=== PATIENT | male | born 1980 | race African-American/Black ===

== ENCOUNTER 2017-03-16 20:11 | Emergency (ER) | payer MEDICAID, OTHER ==
[~2017-03-16] VITALS: Ht 183.5 cm; Wt 83.0 kg
[2017-03-16 20:50] VITALS: BP 134/90
[2017-03-16] MEDS ORDERED: IBUPROFEN600 MG ORAL (20:57)
[2017-03-16] MEDS ORDERED: ACETAMINOPHEN-1 EAC1 ORAL (20:57)
[2017-03-16] MEDS ORDERED: ROBAXIN-750750 MG PO (20:57)
[2017-03-16] MEDS ORDERED: Ketorolac 60mg Inj IM ONE (21:00)
[2017-03-16] MEDS ORDERED: Tylenol #3 tab (300mg/30mg) ORAL ONE (21:00)
[2017-03-16 21:15] VITALS: BP 134/90
--- NOTE | 2017-03-18 10:37 | Emergency Room Report ---
History of Present Illness General Chief Complaint: Lower Back Pain or Injury Source: Patient Present Illness HPI Patient presents with complaints of low back pain Her reports chronic history of back problems Report an MRI from 2013 showing multiple pathology including bulging disc and arthritic changes Patient reports that he has also been weaning himself off marijuana He felt the pain increased in the lower back, and presents for evaluation Patient reports that after taking marijuana his pain appeared to have resolved, however after several hours began having discomfort. Patient has a long history of decompensation including progressively worsening paralysis and muscle strength in the lower extremities Patient ambulate with a cane He reports that he has moved from different [place] And has not been able to have a primary followup Denies any loss of control of bowel urination Denies any recent change in saddle paresthesia, Allergies: Coded Allergies: No Known Allergies (Unverified , 03/16/17) Patient History Past Medical History: see triage record Pertinent Family History: none Reviewed Nursing Documentation: PMH: Agreed, PSxH: Agreed Nursing Documentation-PMH Past Medical History: No History, Except For Review of Systems All Other Systems: negative except mentioned in HPI Physical Exam Vital Signs Date Time Temp Pulse Resp B/P (MAP) Pulse Ox O2 Delivery O2 Flow Rate FiO2 03/16/17 20:42 83 16 134/90 97 Room Air Sp02 EP Interpretation: reviewed, normal General Appearance: no apparent distress Head: normocephalic, atraumatic Eyes: bilateral eye PERRL, bilateral eye EOMI ENT: hearing grossly normal Neck: full range of motion, supple Respiratory: lungs clear, normal breath sounds Cardiovascular #1: normal peripheral pulses, regular rate, rhythm Gastrointestinal: normal bowel sounds, non tender Musculoskeletal: other - Patient has a significantly abnormal gait patient ambulates with a cane, has increased pain in the paraspinal area in the lower L- spine, no obvious step-offs, sensory is intact, Neurologic: alert, oriented x3, ip paralegal III-XII nml as tested Skin: no rash Lymphatic: no adenopathy Medical Decision Making Diagnostic Impression: Primary Impression: Low back pain ER Course There are multiple differentials and consideration Worsening neurological/neurosurgical pathology with the patient's L. spine Infectious pathology There is a significant chronicity to the patient's presentation Patient has MRI from 4 years ago showing significant abnormalities I feel that there is some acute exacerbation of a chronic pathology However do not see any end organ injury or findings on the emergency evaluation requiring repeat acute MRI Patient does require urgent followup as an outpatient And he is agreeable to pain management improvement followed by close followup Last Vital Signs Date Time Temp Pulse Resp B/P (MAP) Pulse Ox O2 Delivery O2 Flow Rate FiO2 03/16/17 21:15 83 16 134/90 97 Room Air Status: improved Disposition: HOME, SELF-CARE Condition: Improved Scripts Acetaminophen With Codeine (T#3) (TYLENOL #3 TAB*) Y Tab 1 TAB ORAL Q8H Y for For Pain, #12 TAB Prov: MAGDY BRAGA D.O. 03/16/17 Methocarbamol* (ROBAXIN-750*) 750 Mg Tablet 750 MG PO TID, #21 TAB 0 Refills Prov: MAGDY BRAGA D.O. 03/16/17 Ibuprofen* (MOTRIN*) 600 Mg Tablet 600 MG ORAL Q8H Y for For Pain, #20 TAB 0 Refills Prov: MAGDY BRAGA D.O. 03/16/17 Referrals: [facility],REFERR[facility] (PCP) Patient Instructions: Back Pain, Adult Additional Instructions: Given your personal account of the MRI he had in 2012, given her progressively worsening symptoms you require close follow with specialty such as neurosurgery/ orthopedic specialty. This has been a progressively worsening pathology, there is no obvious acute emergency findings at this time, however these worsening symptoms can be to paralysis and other neurosurgical emergencies and close followup is required MAGDY BRAGA D.O. Mar 18, 2017 10:37
== END 2017-03-16 21:25 | disposition home or self-care (01) ==
LOC: EMR 21:19
DX: M54.5 Low back pain (principal)
CPT/HCPCS: 96372; 99284